=== PATIENT | male | born 1960 | race Caucasian/White ===

== ENCOUNTER 2016-05-16 12:56 | Emergency (ER) | payer BC ==
[2016-05-16] MEDS ORDERED: Metoprolol Tartrate 50 MG Tab PO ONE (13:00)
--- NOTE | 2016-05-16 13:11 | EDM.PDOC ---
ED HPI ENT - General Chief Complaint: ENT Problem Stated Complaint: NOSE BLEED Time Seen by Provider: 05/16/16 13:00 Source: Reports: Patient, Old records History Limitations: Reports: No limitations - History of Present Illness INITIAL COMMENTS - FREE TEXT/NARRATIVE: 56 yo male with a pHx of borderline HTN and who is not on any anticoagulants presents with intermittent epistaxis over the past couple of weeks. The bleeding was particularly heavy before coming in today, but is controlled on arrival. BP was 135/88 in the clinic recently. He is not on anything for HTN. No recent nasal injury. States that if he were sitting vertically that most of the blood came out of his R nostril anteriorly. 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 (see below) (none) - Related Data Allergies/ADRs: Allergies Allergy/AdvReac Type Severity Reaction Status Date / Time morphine Allergy Itching Verified 05/16/16 14:08 Home Meds: Home Meds Gabapentin [Neurontin] 300 mg PO BID 05/16/16 [History] Past Medical History - Past Health History Medical/Surgical History: Denies Medical/Surgical History Musculoskeletal History: Reports: Other (see below) Other Musculoskeletal History: neck fusion Neurological History: Reports: Migraines Social & Family History - Family History Family Medical History: Noncontributory - Tobacco Use Smoking Status *Q: Never Smoker Second Hand Smoke Exposure: Yes - Caffeine Use Caffeine Use: Reports: None - Alcohol Use Days Per Week of Alcohol Use: 0 - Recreational Drug Use Recreational Drug Use: No ED ROS ENT - Review of Systems Review Of Systems: See Below Constitutional: Reports: no symptoms HEENT: Reports: Nosebleed Respiratory: Reports: No Symptoms Cardiovascular: Reports: No symptoms GI/Abdominal: Reports: No symptoms : Reports: no symptoms Musculoskeletal: Reports: no symptoms Skin: Reports: no symptoms Neurological: Reports: No Symptoms ED EXAM, ENT - Physical Exam Exam: See Below Exam Limited By: No limitations General Appearance: alert, WD/WN, no apparent distress Eye Exam: bilateral eye: normal inspection, PERRL Ears: normal external exam, normal canal, hearing grossly normal, normal TMs Nose: normal inspection, normal mucousa, other (fresh clot in R nares. No current bleeding. ) Mouth/Throat: Normal inspection, Normal gums, Normal lips, Normal oropharynx, Normal teeth Head: atraumatic, normocephalic Neck: normal inspection, supple, non-tender Respiratory/Chest: no respiratory distress, lungs clear, normal breath sounds, no accessory muscle use Cardiovascular: regular rate, rhythm, no edema GI/Abdominal: normal bowel sounds, soft Neurological: alert, oriented, CN II-XII intact, normal cognition, no motor/ sensory deficits Psychiatric: normal affect, normal mood Skin: Warm, Dry, Intact, Normal color, No rash Lymphatic: no adenopathy Course - Vital Signs Text/Narrative:: Accu Check 103 Metoprolol tartrate 50 mg po 4% cocaine sindi'n + cotton ball placed in R nares, cautery of the R septum with silver nitrate Last Recorded V/S: Last Vital Signs Temp Pulse 77 05/16/16 13:11 Resp 18 05/16/16 13:00 BP 146/97 H 05/16/16 13:11 Pulse Ox 100 05/16/16 13:00 - Orders/Labs/Meds Orders: Active Orders 24 hr Category Date Time Status Accu Check [Blood Glucose Check, Bedside] [RC] ONETIME Care 05/16/16 12:59 Active Labs: Laboratory Tests 05/16/16 Range/Units 13:03 POC Glucose 103 (80-116) mg/dL Meds: Medications Discontinued Medications Generic Name Dose Route Start Last Admin Trade Name López PRN Reason Stop Dose Admin Cocaine HCl 4 ml 05/16/16 13:05 05/16/16 13:17 Cocaine Hcl TOP 05/16/16 13:06 4 ml ONETIME ONE Administration Metoprolol Tartrate 50 mg 05/16/16 13:00 05/16/16 13:11 Lopressor PO 05/16/16 13:01 50 mg ONETIME ONE Administration Departure - Departure Time of Disposition: 14:30 Disposition: Home, Self-Care 01 Condition: good Clinical Impression: Epistaxis, recurrent HTN (hypertension) Qualifiers: Hypertension type: essential hypertension Qualified Code(s): I10 - Essential ( primary) hypertension - My Orders Last 24 Hours: My Active Orders 05/16/16 12:59 Accu Check [Blood Glucose Check, Bedside] [RC] ONETIME - Assessment/Plan Last 24 Hours: My Active Orders 05/16/16 12:59 Accu Check [Blood Glucose Check, Bedside] [RC] ONETIME
[2016-05-16] MEDS ORDERED: Lidocaine 2% Viscous Solution 15 ML Cup PO ONE (14:24)
[2016-05-16 15:14] VITALS: BP 143/98
== END 2016-05-16 15:00 | disposition home or self-care (01) ==
LOC: SUPCPDRO 12:56 → FB.ED 12:56
DX: R04.0 Epistaxis (principal); Z88.5 Allergy status to narcotic agent
CPT/HCPCS: 30903; 82962; 99283; A9270

== ENCOUNTER 2016-05-16 18:35 | Emergency (ER) | payer BC ==
--- NOTE | 2016-05-16 19:05 | EDM.PDOC ---
ED HPI ENT - General Chief Complaint: ENT Problem Stated Complaint: GENERAL Time Seen by Provider: 05/16/16 18:50 Source: Reports: Patient History Limitations: Reports: No limitations - History of Present Illness INITIAL COMMENTS - FREE TEXT/NARRATIVE: Was seen here earlier today for epistaxis. A Rhino Rocket was placed in his R nares with about 12 ml of air. He is not tolerating this so returns asking for it to be removed. No bleeding. 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 - Related Data Allergies/ADRs: Allergies Allergy/AdvReac Type Severity Reaction Status Date / Time morphine Allergy Itching Verified 05/16/16 14:08 Home Meds: Home Meds Gabapentin [Neurontin] 300 mg PO BID 05/16/16 [History] Metoprolol Succinate [Toprol Xl] 100 mg PO QPM #30 tab.sr.24h 05/16/16 [Rx] Past Medical History - Past Health History Medical/Surgical History: Denies Medical/Surgical History Musculoskeletal History: Reports: Other (see below) Other Musculoskeletal History: neck fusion Neurological History: Reports: Migraines Social & Family History - Family History Family Medical History: Noncontributory - Tobacco Use Smoking Status *Q: Never Smoker Second Hand Smoke Exposure: Yes - Caffeine Use Caffeine Use: Reports: None - Alcohol Use Days Per Week of Alcohol Use: 0 - Recreational Drug Use Recreational Drug Use: No ED ROS ENT - Review of Systems Review Of Systems: See Below Constitutional: Reports: no symptoms HEENT: Reports: Nose pain, Throat pain Respiratory: Reports: No Symptoms Cardiovascular: Reports: No symptoms GI/Abdominal: Reports: No symptoms : Reports: no symptoms Musculoskeletal: Reports: no symptoms Skin: Reports: no symptoms Neurological: Reports: No Symptoms ED EXAM, ENT - Physical Exam Exam: See Below Exam Limited By: No limitations General Appearance: alert, WD/WN, no apparent distress Eye Exam: bilateral eye: normal inspection Ears: normal external exam, normal canal, hearing grossly normal, normal TMs Nose: normal inspection, normal mucousa, no blood Mouth/Throat: Normal inspection, Normal gums, Normal lips, Normal oropharynx Head: atraumatic, normocephalic Neck: normal inspection, supple Respiratory/Chest: no respiratory distress, lungs clear, normal breath sounds, no accessory muscle use Cardiovascular: regular rate, rhythm, no edema Neurological: alert, oriented, CN II-XII intact, normal cognition, no motor/ sensory deficits Psychiatric: normal affect, normal mood Skin: Warm, Dry, Intact, Normal color, No rash Course - Vital Signs Text/Narrative:: Rhino Rocket removed. Departure - Departure Time of Disposition: 19:05 Disposition: Home, Self-Care 01 Condition: good Clinical Impression: Epistaxis Referrals: Ady Newby MD [Primary Care Provider] - Additional Instructions: Rest today and tomorrow with your head up. Acetaminophen is Ok for pain relief as needed. Put Vaseline in your R nostril several times a day. No lifting. Keep your head above your heart at all times. F/U with ENT if bleeding resumes. Direct pressure with nose clamp if bleeding resumes.
== END 2016-05-16 19:00 | disposition home or self-care (01) ==
LOC: FB.ED 18:35
CPT/HCPCS: 99283

== ENCOUNTER 2019-10-11 07:08 | Day surgery (SDC) | payer BC, MEDICAID ==
[2019-10-11] MEDS ORDERED: Dexamethasone 4 MG/ML 5 ML MDV IVPUSH ONE (07:09)
[2019-10-11] MEDS ORDERED: ePHEDrine 50 MG/ML SDV IV ONE (07:09)
[2019-10-11] MEDS ORDERED: Lidocaine 2% 5 ML SDV IV ONE (07:09)
[2019-10-11] MEDS ORDERED: Ketorolac 30 MG/ML SDV IVPUSH ONE (07:09)
[2019-10-11] MEDS ORDERED: Propofol 200 MG/20 ML SDV IV ONE (07:09)
[2019-10-11] MEDS ORDERED: fentaNYL 100 MCG/2 ML SDV IV ONE (07:09)
[2019-10-11] MEDS ORDERED: Midazolam 1 MG/ML 2 ML SDV IV ONE (07:09)
[2019-10-11] MEDS ORDERED: Lactated Ringers 1,000 ML IV ONE (07:09)
[2019-10-11] MEDS ORDERED: Ondansetron 4 MG/2 ML SDV IVPUSH ONE (07:09)
[2019-10-11] MEDS ORDERED: Sodium Chloride 0.9% 10 ML Syringe FLUSH PRN (07:15)
[2019-10-11] MEDS ORDERED: Lactated Ringers 1,000 ML IV SCH (07:15)
[2019-10-11] MEDS ORDERED: ceFAZolin 2 GM in Premix Bag 1 BAG IV ONE (07:30)
[2019-10-11 08:42] VITALS: PULSE 56
[2019-10-11] MEDS ORDERED: Lidocaine 1% with EPINEPHrine 1:100,000 20 ML MDV INJECT ONE (09:03)
[2019-10-11] MEDS ORDERED: Bupivacaine 0.5% 30 ML SDV INJECT ONE (09:03)
[2019-10-11] MEDS ORDERED: Acetaminophen/HYDROcodone 325-5 MG Tab PO PRN (09:59)
--- NOTE | 2019-10-11 09:59 | PCM.OPNOTE ---
- General Post-Op/Procedure Note Date of Surgery/Procedure: 10/11/19 Operative Procedure(s): lih repair with mesh Findings: direct hernia. bleeding from small branch of iliac controlled with clips Pre Op Diagnosis: lih direct without obstruction or gangrene Post-Op Diagnosis: Same Anesthesia Technique: General LMA, Local (10 ml 1 % lido with epin/0.5% buvipicaine) Primary Surgeon: Josh Sierra Anesthesia Provider: Jeronimo Ibarra EBL in mLs: 15 Complications: None Condition: Good Free Text/Narrative:: see dictation
[2019-10-11] MEDS ORDERED: Celecoxib 200 MG Cap PO ONE (10:00)
[2019-10-11 11:25] VITALS: BP 129/80
--- NOTE | 2019-10-13 00:49 | OR ---
DATE OF OPERATION: 10/11/2019 SURGEON: Josh Sierra MD PROCEDURE PERFORMED: Left inguinal hernia repair. PREOPERATIVE DIAGNOSIS: Left inguinal hernia without obstruction or gangrene. POSTOPERATIVE DIAGNOSIS: Direct left inguinal hernia. INDICATIONS FOR PROCEDURE: This is a 59-year-old man, who presents with some discomfort in the left inguinal area. On physical exam, has findings consistent with an inguinal hernia. He was offered and accepted repair. INTRAOPERATIVE FINDINGS: As follows: A direct hernia was encountered. This was repaired with a Phasix plug and patch, extra-large, lot number [id number], reference number [id number] with an expiration date of 2021-03-30, a total of 10 mL of 1:1 mixture of 1% lidocaine with epinephrine and 0.5% bupivacaine was used. DESCRIPTION OF OPERATION: After an excellent LMA anesthetic was used, the patient was prepped and draped in usual sterile manner. Approximately 5 mL of local mixture was used to infiltrate the planned incision site, which gave an intercept point along the inguinal ligament approximately jail between the anterior-superior iliac spine and the symphysis pubis. In addition, a small skin wheal was raised medial to the anterior-superior iliac spine and an intramuscular injection was performed to get the ilioinguinal and genitofemoral nerve. A 5 cm incision was then carried out. Superficial inferior epigastric vessels were clamped, divided, and tied with 2-0 Vicryl ties. The aponeurosis was exposed, and more local was injected. A stab incision was made through the aponeurosis and carried out through the external oblique. The cord was mobilized. Efforts to visualize the ilioinguinal nerve were not successful, and it appeared to be a variation, as it was not the cord. After skeletonizing the cord and identifying no ilioinguinal nerve, a defect was noted in the floor of the inguinal canal. An extra-large Phasix plug was then inserted into the defect and sewed to the transversalis, as well as the inguinal ligament. In placing the stitch in the medial aspect of the patch, there was some oozing noted. This was not able to be controlled with direct pressure. Careful dissection was carried out, and it appears that the iliac artery had some very slow oozing in this area from the sidewall. This was controlled with judicious placement of 2 clips along the side of the artery, as well as one on the other side of what appeared to be a small side branch. More pressure was applied. Surgicel was applied over the area and after 5 minutes, the area was re-examined and it was obvious that the bleeding had been controlled and stopped. We did replace the old Surgicel with a new piece, proceeded to place the overlay mesh on the floor of the inguinal canal, and tacked the inferior edge along the inguinal ligament with a running 2-0 Vicryl as well. Vertical keyhole was closed, which had been cut around the inguinal ligament, and that defect was closed again with running 2-0 Vicryl. Optifast was used to tack the mesh to the floor of the inguinal canal. The area again was re-irrigated. Again, no evidence of any bleeding was noted. The aponeurosis of the external oblique was then closed with a running 3-0 Vicryl. Brain's fascia was closed with a running 3-0 Vicryl. [place] were used to close the skin. Needle, sponge, and instrument counts were reported as correct. The patient was taken to recovery in good condition having tolerated the procedure well. /[id number] /MODL
== END 2019-10-11 11:22 | disposition home or self-care (01) ==
LOC: FB.SDS 07:08
PROVIDERS: ATTEND Surgery
DX: K40.90 Unilateral inguinal hernia, without obstruction or gangrene, not specified as recurrent (principal); I10 Essential (primary) hypertension; K21.9 Gastro-esophageal reflux disease without esophagitis; Z88.5 Allergy status to narcotic agent; Z79.899 Other long term (current) drug therapy
CPT/HCPCS: 00830; 49505; 94150; C1713; C1781; J0690; J1100; J1885; J2001; J2250; J2405; J2704; J3010; J3490; J7120

== ENCOUNTER 2022-06-07 22:51 | Emergency (ER) | payer MEDICAID ==
[2022-06-07] MEDS ORDERED: traMADol 50 MG Tab PO ONE (22:52)
[2022-06-07 23:16] VITALS: BP 153/73; PULSE 72
== END 2022-06-07 23:38 | disposition home or self-care (01) ==
LOC: FB.ED 22:51
DX: S43.401A Unspecified sprain of right shoulder joint, initial encounter (principal); I10 Essential (primary) hypertension; Z88.5 Allergy status to narcotic agent; Z79.899 Other long term (current) drug therapy; W00.0XXA Fall on same level due to ice and snow, initial encounter
CPT/HCPCS: 73060; 99283; A9270

== ENCOUNTER 2023-02-22 09:33 | Emergency (ER) | payer MEDICAID ==
[2023-02-22] MEDS ORDERED: Alum Hydroxide/Mag Hydroxide 15 ML, Lidocaine 2% 15 ML PO ONE ×2 (09:46)
[2023-02-22] MEDS ORDERED: Sodium Chloride 0.9% 10 ML Syringe FLUSH PRN (09:48)
[2023-02-22 09:55] LABS: BASOPHILS ABSOLUTE AUTO 0.1 x10-3/uL (0.0-0.3); BASOPHILS PERCENT AUTO 0.8 % (0.3-3.8); EOSINOPHILS ABSOLUTE AUTO 0.2 x10-3/uL (0.0-0.6); EOSINOPHILS PERCENT AUTO 2.6 % (0.1-6.8); HEMOGLOBIN 17.2 g/dL (12.9-17.7); LYMPHOCYTES ABSOLUTE AUTO 1.5 x10-3/uL (0.5-4.5); LYMPHOCYTES PERCENT AUTO 23.6 % (15.8-45.3); MEAN CORPUSCULAR HEMOGLOBIN 32.7 pg (27.0-33.3); MEAN CORPUSCULAR HGB CONC 34.3 g/dL (28.7-35.3); MEAN CORPUSCULAR VOLUME 95.1 fL (80.8-98.7); MEAN PLATELET VOLUME 9.4 fL (6.7-11.0); MONOCYTES ABSOLUTE AUTO 0.8 x10-3/uL (0.0-1.2); MONOCYTES PERCENT AUTO 11.8 % (5.5-15.2); NEUTROPHILS PERCENT AUTO 61.2 % (40.3-71.8); PLATELET COUNT,PLT 179 x10(3)uL (117-477); RED BLOOD CELL COUNT 5.26 x10(6)uL (3.90-5.90); RED CELL DISTRIBUTION WIDTH 12.5 % (12.4-15.0); WHITE BLOOD CELL COUNT,WBC 6.5 x10-3/uL (3.2-10.1)
[2023-02-22 09:57] LABS: BLOOD UREA NITROGEN,BUN 17 mg/dL (7-18); CALCIUM 9.7 mg/dL (8.6-10.2); CARBON DIOXIDE,CO2 30 mmol/L (21-32); CHLORIDE,CL 102 mmol/L (100-110); ESTIMATED GFR 86 mL/min (>60); GLUCOSE RANDOM 106 mg/dL (80-116); POTASSIUM,K 3.8 mmol/L (3.5-5.3); SODIUM,NA 139 mmol/L (135-145)
[2023-02-22 10:03] LABS: ALANINE AMINOTRANSFERASE,ALT 29 U/L (12-36); ALBUMIN 3.7 g/dL (3.2-4.6); ALKALINE PHOSPHATASE 197 IU/L (56-112); ASPARTATE AMNIOTRANSFERASE,AST 18 IU/L (5-25); BILIRUBIN TOTAL 0.5 mg/dL (0.1-1.3); PROTEIN TOTAL,TP 7.6 g/dL (6.0-8.0)
[2023-02-22] MEDS ORDERED: Nitroglycerin 0.4 MG Tab.SL SL ONE ×2 (10:12→10:45)
[2023-02-22] MEDS ORDERED: Aspirin 81 MG Tab.Chew PO ONE (10:12)
[2023-02-22 10:30] VITALS: BP 129/93; PULSE 66
[2023-02-22] MEDS ORDERED: Ketorolac 30 MG/ML SDV IVPUSH ONE (10:44)
[2023-02-22 12:12] LABS: D-DIMER QUANTITATIVE 0.24 mg/LFEU (0.0-0.59)
[2023-02-22 12:17] LABS: INR 0.94 (1.00-1.24); PROTHROMBIN TIME 9.7 sec (9.0-11.1); PTT,PARTIAL THROMBOPLSTIN TIME 26.3 SECONDS (24.4-33.2)
== END 2023-02-22 12:40 | disposition home or self-care (01) ==
LOC: FB.ED 09:33
DX: R07.2 Precordial pain (principal); I10 Essential (primary) hypertension; Z79.899 Other long term (current) drug therapy; Z63.8 Other specified problems related to primary support group; Z88.5 Allergy status to narcotic agent
CPT/HCPCS: 36415; 71045; 80053; 83880; 84484; 85025; 85379; 85610; 85730; 93005; 96374; 99285; A9270; J1885